=== PATIENT | male | born 1940 | race Caucasian/White ===

== ENCOUNTER 2020-02-06 14:42 | Inpatient (IN) | payer MEDICARE ==
[~2020-02-06] VITALS: Ht 188 cm; Wt 92.9 kg
[2020-02-06] VITALS (7 sets, daily range): BP systolic 148–170; BP diastolic 49–79
[2020-02-06] MEDS ORDERED: DEXTROSE 50% 25 GM / 50ML DISP.SYRIN. IV PRN (16:30)
[2020-02-06] MEDS ORDERED: ACET325T9 PO (16:57)
[2020-02-06] MEDS ORDERED: CALC-30 PO (16:59)
[2020-02-06] MEDS ORDERED: CETI5TAB2 PO (16:59)
[2020-02-06] MEDS ORDERED: ALBU2.5V14 NEB (16:59)
[2020-02-06] MEDS ORDERED: LACT1CAP29 PO (17:09)
[2020-02-06] MEDS ORDERED: CYAN100031 PO (17:09)
[2020-02-06] MEDS ORDERED: MUPI22OI2 TP (17:09)
[2020-02-06] MEDS ORDERED: CITA40TA5 PO (17:09)
[2020-02-06] MEDS ORDERED: GABA300C18 PO (17:09)
[2020-02-06] MEDS ORDERED: SENN8.6T88 PO (17:09)
[2020-02-06] MEDS ORDERED: METO-239 PO (17:09)
[2020-02-06] MEDS ORDERED: ROPI2TAB6 PO (17:09)
[2020-02-06] MEDS ORDERED: INSU100V6 SQ (17:09)
[2020-02-06] MEDS ORDERED: POTA-163 PO (17:09)
[2020-02-06] MEDS ORDERED: LIDO700A21 TP (17:09)
[2020-02-06] MEDS ORDERED: INSU100I13 SQ (17:09)
[2020-02-06] MEDS ORDERED: POLY2500 PO (17:09)
[2020-02-06] MEDS ORDERED: TAMS0.4C97 PO (17:09)
[2020-02-06] MEDS ORDERED: TORS20TA2 PO (17:09)
[2020-02-06] MEDS ORDERED: LOSA25TA PO (17:09)
[2020-02-06] MEDS ORDERED: CLOP75TA PO (17:09)
[2020-02-06] MEDS: INSULIN LISPRO 300 UNITS/3 ML VIAL. SQ SCH (17:09)
[2020-02-06] MEDS: INSULIN GLARGINE SYRINGE. SQ SCH (20:48)
[2020-02-06] MEDS ORDERED: ACETAMINOPHEN 325 MG TABLET. PO PRN (22:15)
[2020-02-07] VITALS (11 sets, daily range): BP systolic 110–169; BP diastolic 56–87
[2020-02-07] MEDS ORDERED: NON FORMULARY ITEM (Albuterol Sulfate (Albuterol Sulfate Conc Neb Soln) 1 VIAL) NEB SCH
[2020-02-07 05:15] LABS: BASO % 1 % (0-3); EOS # 0.2 x10^3/uL (0.0-0.7); EOS % 3 % (0-3); HEMOGLOBIN 11.5 g/dL (13.0-17.5); LYMPH # 1.4 x10^3/uL (1.0-4.8); LYMPH % 21 % (24-48); MEAN CORPUSCULAR HEMOGLOBIN 30 pg (25-35); MEAN CORPUSCULAR HGB CONC 34 g/dL (31-37); MEAN CORPUSCULAR VOLUME 90 fL (79-100); MONO # 0.6 x10^3/uL (0.0-1.1); MONO % 10 % (0-9); NEUT # 4.3 x10^3/uL (1.8-7.7); NEUT % 66 % (31-73); PLATELET COUNT 196 x10^3/uL (140-400); RED BLOOD COUNT 3.79 x10^6/uL (4.30-5.70); RED CELL DISTRIBUTION WIDTH 15.2 % (11.5-14.5); WHITE BLOOD COUNT 6.5 x10^3/uL (4.0-11.0)
[2020-02-07 05:43] LABS: ALBUMIN 2.5 g/dL (3.4-5.0); ALBUMIN/GLOBULIN RATIO 0.6 (1.0-1.7); CALCIUM 8.3 mg/dL (8.5-10.1); CREATININE 1.6 mg/dL (0.7-1.3); GFR 41.9; POTASSIUM 4.8 mmol/L (3.5-5.1); TOTAL BILIRUBIN 0.4 mg/dL (0.2-1.0); TOTAL PROTEIN 6.7 g/dL (6.4-8.2)
[2020-02-07] MEDS: ALBUTEROL SULFATE 2.5 MG/3 ML NEBU. NEB SCH ×4 (08:12→19:58)
--- NOTE | 2020-02-07 08:25 | PDOC ---
Infectious Disease Note Subjective: Subjective Patient seen and examined Vital Signs: Vital Signs Vital Signs Date Time Temp Pulse Resp B/P (MAP) Pulse Ox O2 Delivery O2 Flow Rate FiO2 02/07/20 08:12 97 Room Air 02/07/20 06:00 94 20 161/62 (95) 2.0 02/07/20 04:00 98.2 98.2 Medications: Inpatient Meds: Current Medications Medications (Trade) Dose Ordered Sig/Christina Start Time Stop Time Status Last Admin Dose Admin Acetaminophen (Tylenol) 650 mg PRN Q8HRS PRN 02/06/20 22:15 Albuterol Sulfate (Ventolin Neb Soln) 2.5 mg RTQID 02/07/20 08:00 02/07/20 08:12 2.5 MG Calcium/Vitamin D (Oscal D 500mg/ 200uts) 1 tab DAILYWBKFT 02/07/20 08:00 Cetirizine HCl (ZyrTEC) 5 mg DAILY 02/07/20 09:00 Citalopram Hydrobromide (CeleXA) 20 mg DAILY 02/07/20 09:00 Clopidogrel Bisulfate (Plavix) 75 mg DAILY 02/07/20 09:00 Cyanocobalamin (Vitamin B-12) 1,000 mcg DAILY 02/07/20 09:00 Dextrose (Dextrose 50%-Water Syringe) 12.5 gm PRN Q15MIN PRN 02/06/20 16:30 Gabapentin (Neurontin) 300 mg BID 02/07/20 09:00 Insulin Glargine (Lantus Syringe) 15 unit QHS 02/07/20 21:00 Cancel Insulin Human Lispro (HumaLOG) 12 units TIDWMEALS 02/07/20 08:00 Lactobacillus Rhamnosus (Culturelle) 1 cap DAILY 02/07/20 09:00 Lidocaine (Lidoderm) 1 patch DAILY 02/07/20 09:00 Meropenem 500 mg/ Sodium Chloride 50 ml @ 100 mls/hr Q12H 02/07/20 09:00 Metoprolol Succinate (Toprol Xl) 25 mg DAILY 02/07/20 09:00 Non-Formulary Medication (Albuterol Sulfate (Albuterol Sulfate Conc Neb Soln)) 1 vial Q6HRS 02/07/20 00:00 UNV Polyethylene Glycol (miraLAX PACKET) 17 gm DAILY 02/07/20 09:00 Potassium Chloride (Klor-Con) 20 meq DAILYWBKFT 02/07/20 08:00 Sennosides (Senna) 17.2 mg QHS 02/07/20 21:00 Tamsulosin HCl (Flomax) 0.4 mg DAILY 02/07/20 09:00 Torsemide (Demadex) 20 mg DAILY 02/07/20 09:00 Labs: Lab Laboratory Tests Test 02/06/20 16:21 02/06/20 20:46 02/07/20 04:25 Glucose (Fingerstick) 245 mg/dL (70-99) 173 mg/dL (70-99) White Blood Count 6.5 x10^3/uL (4.0-11.0) Red Blood Count 3.79 x10^6/uL (4.30-5.70) Hemoglobin 11.5 g/dL (13.0-17.5) Hematocrit 34.0 % (39.0-53.0) Mean Corpuscular Volume 90 fL (79-100) Mean Corpuscular Hemoglobin 30 pg (25-35) Mean Corpuscular Hemoglobin Concent 34 g/dL (31-37) Red Cell Distribution Width 15.2 % (11.5-14.5) Platelet Count 196 x10^3/uL (140-400) Neutrophils (%) (Auto) 66 % (31-73) Lymphocytes (%) (Auto) 21 % (24-48) Monocytes (%) (Auto) 10 % (0-9) Eosinophils (%) (Auto) 3 % (0-3) Basophils (%) (Auto) 1 % (0-3) Neutrophils # (Auto) 4.3 x10^3/uL (1.8-7.7) Lymphocytes # (Auto) 1.4 x10^3/uL (1.0-4.8) Monocytes # (Auto) 0.6 x10^3/uL (0.0-1.1) Eosinophils # (Auto) 0.2 x10^3/uL (0.0-0.7) Basophils # (Auto) 0.0 x10^3/uL (0.0-0.2) Sodium Level 136 mmol/L (136-145) Potassium Level 4.8 mmol/L (3.5-5.1) Chloride Level 101 mmol/L (98-107) Carbon Dioxide Level 30 mmol/L (21-32) Anion Gap 5 (6-14) Blood Urea Nitrogen 42 mg/dL (8-26) Creatinine 1.6 mg/dL (0.7-1.3) Estimated GFR (Cockcroft-Gault) 41.9 BUN/Creatinine Ratio 26 (6-20) Glucose Level 310 mg/dL (70-99) Calcium Level 8.3 mg/dL (8.5-10.1) Total Bilirubin 0.4 mg/dL (0.2-1.0) Aspartate Amino Transf (AST/SGOT) 20 U/L (15-37) Alanine Aminotransferase (ALT/SGPT) 17 U/L (16-63) Alkaline Phosphatase 137 U/L (46-116) Total Protein 6.7 g/dL (6.4-8.2) Albumin 2.5 g/dL (3.4-5.0) Albumin/Globulin Ratio 0.6 (1.0-1.7) Objective: Assessment: ID consult dictated Records from [facility] reviewed Plan: Plan of Care Continue Merrem Will wean off soon Thank you Discussed with nursing JOSE ANTONIO FERRARA MD Feb 07, 2020 08:25
--- NOTE | 2020-02-07 08:40 | CONS ---
DATE OF CONSULTATION: 02/07/2020 REFERRING PHYSICIAN: Dr. Farnsworth. REASON FOR CONSULTATION: Antibiotic management. HISTORY OF PRESENT ILLNESS: A 79-year-old male with history of CVA, presented on 02/04/2020 at [facility] ER after he was found on the floor at his home. The patient was found to have leukocytosis, JOSE, hyperkalemia, lactic acidosis. The patient is unable to give history. History obtained from the chart and medical staff. The patient's blood sugar was elevated at 1293. Potassium was 6.7. He had JOSE over CKD with hyponatremia. He received IV fluid bolus, was given Levaquin. Chest x-ray showed diffuse interstitial prominence, likely emphysematous changes associated with patchy opacities seen in the lung. It may be developing atelectasis or developing consolidation, no pleural effusion, no pneumothorax. He was started on IV insulin drip, IV fluids, and IV meropenem. The patient subsequently had AFib with RVR, so has been transferred to [facility] for further evaluation and treatment. Today, the patient feels better. He wants to go home. He denies any headache, sore throat, fever, chills, nausea, vomiting, diarrhea, abdominal pain. He has chronic Payton, which had some purulent drainage per staff. Urine cultures showed contamination. Payton was changed at [facility]. The patient denies being on any antibiotics prior to admission. He has Payton in place for a couple of months. Today, WBC is normal at 6.5, hemoglobin of 11.5, hematocrit of 34, platelets of 196. Sodium is 136, potassium 4.8, chloride 101, bicarbonate 30, creatinine is down to 1.6, glucose is down to 310. ID consult has been requested for antibiotic management. PAST MEDICAL HISTORY: CVA, diabetic peripheral neuropathy, hypertension, hyperlipidemia, COPD, restless leg syndrome, depression, DJD, chronic congestive heart failure, multiple rib fractures, recurrent falls, history of diabetic retinopathy, peripheral vascular disease, CKD, pseudophakia, diabetic macular edema, type 2 diabetes, history of lung abscess and pneumonia, chronic respiratory failure, on supplemental oxygen. SOCIAL HISTORY: Does not smoke, drink alcohol or use illicit drug use. , lives with son at home. ALLERGIES: PENICILLIN, the patient has tolerated amoxicillin well. CURRENT MEDICATIONS: Meropenem. Other medications reviewed in medication list. PHYSICAL EXAMINATION: VITAL SIGNS: Temperature 98.2, pulse 94, respiratory rate 20, blood pressure 161/62, oxygen saturation 94% on 2 liters of nasal cannula. GENERAL: Alert and oriented x 3 male lying in bed comfortably, in no acute distress, asking for breakfast. HEENT: Normocephalic, atraumatic, anicteric. NECK: Supple. LUNGS: Clear bilaterally. HEART: S1, S2, regular rhythm. No gallops or murmurs. ABDOMEN: Soft, nontender, nondistended, no rebound, no guarding. GENITOURINARY: Payton in place. EXTREMITIES: No edema, no cyanosis. NEUROLOGIC: Alert, awake. Left-sided weakness, chronic from cerebrovascular CVA. PSYCHIATRIC: Cooperative. LABORATORY DATA: WBC 6.5, was 21, hemoglobin 11.5, hematocrit 34, platelets 196. Chemistry as above. Glucose 310, calcium 8.3, alkaline phosphatase 137, total protein 6.7, albumin 2.5. Urine culture is negative at [facility]. IMAGING: None here. IMPRESSION: 1. Leukocytosis. 2. Lactic acidosis. 3. Diabetic ketoacidosis. 4. Hyperkalemia. 5. Acute kidney injury over chronic kidney disease. 6. Diabetes mellitus 2. 7. Atrial fibrillation with rapid ventricular response. 8. History of cerebrovascular accident. 9. Chronic indwelling Payton, Payton changed at outside hospitals. 10. HISTORY OF ALLERGIES TO PENICILLIN, reaction unknown. The patient states has tolerated amoxicillin. 11. Degenerative joint disease. 12. Chronic obstructive pulmonary disease. 13. Restless leg syndrome. 14. Depression. 15. Chronic congestive heart failure. 16. Diabetic peripheral neuropathy and retinopathy. RECOMMENDATIONS: 1. Continue meropenem. 2. We will wean off soon. 3. Follow up labs and cultures. 4. Continue supportive care. Thank you, Dr. Farnsworth, for consulting Infectious Disease to participate in this patient's care. If you have any questions, do not hesitate to contact me. CCT 35 minutes. Discussed with nursing staff. JOSE ANTONIO FERRARA MD DR: ADELA/mariel JOB#: [id number] / [id number]
[2020-02-07] MEDS: INSULIN LISPRO 300 UNITS/3 ML VIAL. SQ SCH ×6 (08:44→18:10)
[2020-02-07] MEDS: POLYETHYLENE GLYCOL 3350 17 GM PACKET. PO SCH (09:00)
[2020-02-07] MEDS ORDERED: METOPROLOL SUCC 24HR ER 25 MG TAB.ER.24H. PO SCH (09:00)
[2020-02-07] MEDS: POTASSIUM CHLORIDE 20 MEQ TABLET.ER. PO SCH (10:20)
[2020-02-07] MEDS: TAMSULOSIN 0.4 MG CAP.ER.24H. PO SCH (10:20)
[2020-02-07] MEDS: CYANOCOBALAMIN (VITAMIN B-12) 1,000 MCG TABLET. PO SCH (10:20)
[2020-02-07] MEDS: CITALOPRAM 20 MG TABLET. PO SCH (10:20)
[2020-02-07] MEDS: LACTOBACILLUS RHAMNOSUS GG 1 CAPSULE. PO SCH (10:20)
[2020-02-07] MEDS: CETIRIZINE HCL 10 MG TABLET. PO SCH (10:21)
[2020-02-07] MEDS: GABAPENTIN 300 MG CAPSULE. PO SCH ×2 (10:21→21:00)
[2020-02-07] MEDS: CALCIUM CARB/VIT D3 500/200 TABLET. PO SCH (10:21)
[2020-02-07] MEDS: TORSEMIDE 20 MG TABLET. PO SCH (10:21)
[2020-02-07] MEDS: CLOPIDOGREL BISULFATE 75 MG TABLET PO SCH (10:21)
[2020-02-07] MEDS: LIDOCAINE (700MG/PATCH) PATCH. TP SCH (10:23)
[2020-02-07] MEDS: MEROPENEM 500 MG in IV NORMAL SALINE 50ML 50 ML IV SCH ×2 (10:34→21:01)
--- NOTE | 2020-02-07 11:23 | PDOC ---
CARDIO Progress Notes Date and Time Date of Service 02/07/20 Time of Evaluation 1045 Subjective Subjective: No Chest Pain, No shortness of breath, No Palpitations Vitals Vitals Vital Signs Date Time Temp Pulse Resp B/P (MAP) Pulse Ox O2 Delivery O2 Flow Rate FiO2 02/07/20 10:22 107 169/81 02/07/20 08:12 97 Room Air 02/07/20 06:00 20 2.0 02/07/20 04:00 98.2 98.2 Weight Weight [ ] Input and Output Intake and Output Intake and Output 02/07/20 07:00 Intake Total 200 ml Output Total 2725 ml Balance -2525 ml Intake Oral 200 ml Output Urine Total 2725 ml Laboratory Labs Laboratory Tests Test 02/06/20 16:21 02/06/20 20:46 02/07/20 04:25 02/07/20 08:40 Glucose (Fingerstick) 245 mg/dL (70-99) 173 mg/dL (70-99) 383 mg/dL (70-99) White Blood Count 6.5 x10^3/uL (4.0-11.0) Red Blood Count 3.79 x10^6/uL (4.30-5.70) Hemoglobin 11.5 g/dL (13.0-17.5) Hematocrit 34.0 % (39.0-53.0) Mean Corpuscular Volume 90 fL (79-100) Mean Corpuscular Hemoglobin 30 pg (25-35) Mean Corpuscular Hemoglobin Concent 34 g/dL (31-37) Red Cell Distribution Width 15.2 % (11.5-14.5) Platelet Count 196 x10^3/uL (140-400) Neutrophils (%) (Auto) 66 % (31-73) Lymphocytes (%) (Auto) 21 % (24-48) Monocytes (%) (Auto) 10 % (0-9) Eosinophils (%) (Auto) 3 % (0-3) Basophils (%) (Auto) 1 % (0-3) Neutrophils # (Auto) 4.3 x10^3/uL (1.8-7.7) Lymphocytes # (Auto) 1.4 x10^3/uL (1.0-4.8) Monocytes # (Auto) 0.6 x10^3/uL (0.0-1.1) Eosinophils # (Auto) 0.2 x10^3/uL (0.0-0.7) Basophils # (Auto) 0.0 x10^3/uL (0.0-0.2) Sodium Level 136 mmol/L (136-145) Potassium Level 4.8 mmol/L (3.5-5.1) Chloride Level 101 mmol/L (98-107) Carbon Dioxide Level 30 mmol/L (21-32) Anion Gap 5 (6-14) Blood Urea Nitrogen 42 mg/dL (8-26) Creatinine 1.6 mg/dL (0.7-1.3) Estimated GFR (Cockcroft-Gault) 41.9 BUN/Creatinine Ratio 26 (6-20) Glucose Level 310 mg/dL (70-99) Calcium Level 8.3 mg/dL (8.5-10.1) Total Bilirubin 0.4 mg/dL (0.2-1.0) Aspartate Amino Transf (AST/SGOT) 20 U/L (15-37) Alanine Aminotransferase (ALT/SGPT) 17 U/L (16-63) Alkaline Phosphatase 137 U/L (46-116) Total Protein 6.7 g/dL (6.4-8.2) Albumin 2.5 g/dL (3.4-5.0) Albumin/Globulin Ratio 0.6 (1.0-1.7) Physical Exam HEENT: Neck Supple W Full Motion Chest: Symmetric LUNGS: Other (diminished ) Heart: S1S2, RRR Abdomen: Soft N/T Extremities: No Edema Neurology: alert, oriented, follow commands Assessment Assessment 1. Fall, encephalopathy. [facility] head negative for acute findings 2. Diabetes, II with significant hyperglycemia, DKA. POA 3. PAFIB with RVR; s/p IV Dig, metoprolol and Amiodarone bolus. Converted back to SR overnight. TSH WNL 4. Acute respiratory failure with acute on chronic diastolic CHF, AE COPD. Chronic home O2 5. Acute on chronic diastolic CHF; s/p IV Lasix. appears compensated 6 . Leukocytosis, lactic acidosis; improved 7. H/o CVA; on Plavix 8. Hypertension; low end 9. Hyperlipidemia; lipids on goal 10. JOSE on CKD, hpyerkalemia. improving 11. Neurogenic bladder with chronic Payton Recommendations Increase Metoprolol to 50mg daily. Was on 25mg at home Add ASA therapy Poor candidate for long-term OAC given h/o debility, recurrent falls Avoid nephrotoxins. Monitor renal function with diuresis Will arrange outpatient event monitor to guide therapy. Consider outpatient ischemic evaluation Follow up in our office with Dr. Adame as scheduled Echo at [facility] <Conclusion> The left ventricle is normal size. Left ventricle systolic function is mildly impaired. The Ejection Fraction is 40-45%. There is mild hypokinesis in the inferior wall. Septal motion consistent with conduction abnormality. Doppler and Color Flow revealed no significant aortic regurgitation. There is no significant aortic valvular stenosis. Doppler and Color Flow revealed trace mitral valve regurgitation. Doppler and Color Flow revealed trace tricuspid regurgitation. The PA pressure was estimated at 40 mmHg. DATE: 02/06/20 1228 Justicifation of Admission Dx: Justifications for Admission: Justification of Admission Dx: Yes CHF: Cardiac Arrhythmias AYO LAO APRN Feb 07, 2020 11:23
--- NOTE | 2020-02-07 11:27 | HP ---
ADMIT DATE: 02/06/2020 HISTORY OF PRESENT ILLNESS: The patient is a 79-year-old male patient who was admitted to [facility] on 02/04/2020. He was seen in the Emergency Room with altered mental status. He was found on the floor at his home. Family was checking on him and they found his blood sugar to be high on the monitor. They gave him 20 units of some kind of insulin 45 minutes prior to arrival to the Emergency Room and monitored again, read high. The patient complained of some penile pain, has a Payton catheter, has not been changed since December. He denied that he fell. He stated that he slid out of bed. He does not know why or how he slid out of the bed. He is alert to himself and answers question, but does not always answer appropriately. He denied any chest pain. He does not believe he has any fever. He is not able to tell us if he is taking any medication. He was extensively investigated in the Emergency Room and was found to have extremely marked leukocytosis with a white cell count [id number]. His blood sugar was high at 1293. His potassium was high at 6.7. Has chronic kidney disease versus acute on chronic kidney disease and marked dilutional hyponatremia. His lactic acid was 9.5. He did receive a total of 2500 mL of fluid. He was started on insulin drip. He was given also Levaquin. His chest x-ray showed the heart is not enlarged. There is some diffuse interstitial prominence and likely emphysematous changes associated with patchy opacities. These may represent atelectasis or developing consolidation, no pleural effusion or pneumothorax. He was admitted to ICU, continued on IV fluid, insulin drip and IV antibiotic. His white cell count came down nicely to 8000. His chemistry also has improved. In fact, his sodium has risen from 126 to 138 and his serum creatinine has improved from 3.7 to 2.1 yesterday and his lactic acid has normalized. Unfortunately, he went into atrial fibrillation with rapid ventricular response and despite treatment with multiple modalities including diltiazem drip, digoxin and amiodarone, he continued to be in rapid ventricular response and therefore a decision was made to transfer [facility] with the plan to cardiovert him if necessary. In fact, he was seen by the it security administrator and has had an echocardiogram, which showed that his left ventricular size is normal. His left ventricular systolic function is mildly impaired. His ejection fraction was 40-45%. There is mild hypokinesis in the inferior wall, septal motion consistent with conduction abnormalities. The echocardiogram showed no aortic regurgitation or aortic stenosis, mild mitral regurgitation, and trace tricuspid regurgitation. His pulmonary artery pressure was 40 mmHg. PAST MEDICAL HISTORY: Significant for cerebrovascular accident on 05/13/2016, type 2 diabetes, diabetic peripheral neuropathy, benign essential hypertension, hyperlipidemia, chronic obstructive pulmonary disease, restless leg syndrome and depression. He has also generalized osteoarthritis, chronic systolic congestive heart failure, has multiple rib fractures, recurrent falls, mild nonproliferative diabetic retinopathy, peripheral venous insufficiency, chronic kidney disease, pseudophakia, diabetic macular edema, and lung abscess with pneumonia. He is dependent on supplemental oxygen. He normally gets all his care at the [facility]. PAST SURGICAL HISTORY: Unremarkable. SOCIAL HISTORY: He apparently is , does not smoke, drink alcohol or use any recreational drugs. ALLERGIES: HE IS ALLERGIC TO PENICILLIN. MEDICATIONS: He was [facility] to [facility] to continue on Humalog insulin 12 units before meals and 15 units of Lantus insulin at bedtime as well as insulin sliding scale before meals. He was on cyanocobalamin 1000 mcg once a day, cetirizine 5 mg once a day, potassium chloride 20 mEq once a day, Lidoderm patch applied topically once a day, Plavix 75 mg once a day, Flomax 0.4 mg at bedtime, Requip 2 mg at bedtime, gabapentin 300 mg twice a day, calcium with vitamin D twice a day, Mucinex 600 mg twice a day, he was also on meropenem 500 mg IV q.12 hourly, metoprolol succinate 12.5 mg once a day, polyethylene glycol 17 grams twice a day, senna 2 tablets once a day, and Tylenol 650 mg every 6 hours. REVIEW OF SYSTEMS: As per history of present illness. When I saw him this morning in the ICU, he was resting flat, comfortably in bed, in no apparent distress. He denied any complaint. Apparently, he converted to sinus rhythm when he arrived here. PHYSICAL EXAMINATION: GENERAL: When I examined him, he looked somewhat pale, but no jaundice, cyanosis or thyromegaly. No jugular venous distention. No limb edema. VITAL SIGNS: His heart rate was 94, blood pressure was 161/62, temperature was 98.2, respiratory rate was 20, and oxygen saturation was 94% on 2 liters of oxygen. HEAD, EYES, EARS, NOSE AND THROAT: Normocephalic, atraumatic. NECK: Supple. HEART: Showed normal first and second heart sounds. No gallop or murmur. CHEST: Clear to auscultation. No crepitation or rhonchi. ABDOMEN: Distended, soft, and nontender. NEUROLOGICAL: He is awake, alert, but somewhat confused. All his cranial nerves are intact. EXTREMITIES: He moves extremities without difficulty. His intake over the last 24 hours was incompletely recorded. LABORATORY DATA: His lab work this morning showed his white cell count is down from 21,000 to 6500, hemoglobin 11.5, hematocrit 34, MCV was 90, and platelet count of 196,000. His chemistry showed his serum sodium was 136, potassium 4.8, chloride 101, bicarbonate 30, anion gap of 5, BUN 42, creatinine 1.6, estimated GFR was 42 mL per minute. His glucose was 110. Calcium was 8.3. Total bilirubin, AST, and ALT were normal. Alkaline phosphatase slightly elevated. Total protein 6.7. Albumin was 2.5. ASSESSMENT AND PLAN: In summary, this is a 79-year-old male patient who was transferred from [facility] with atrial fibrillation, rapid ventricular response, treated with digoxin, amiodarone and Cardizem drip; however, he converted to sinus rhythm at the moment he arrived here. He was admitted to [facility] with: 1. Diabetic ketoacidosis. 2. Lactic acidosis. 3. Acute on chronic kidney injury. 4. Hyperkalemia. 5. Sepsis, likely due to pneumonia versus urinary tract infection. 6. The patient has multiple other medical problems including: A. Chronic kidney disease. B. Hypertension. C. Hyperlipidemia. D. Type 2 diabetes mellitus. E. Chronic obstructive pulmonary disease. F. Restless leg syndrome. PLAN: The plan is obviously to continue monitoring his blood sugar and adjust insulin as needed. Continue with IV antibiotic in the form of meropenem. Continue with metoprolol to control his heart rate. Continue with furosemide for his chronic systolic congestive heart failure. The patient is stable and can be transferred to [address] [place] [address] [place] [address]. I would also consult the physical and occupational therapist. I did consult the it security administrator as well as Infectious Disease specialist. His kidney function has dramatically improved. His creatinine came down from 3.7 to 1.6. He also has severe protein-calorie malnutrition with serum albumin is only 2.5 g/dL. LINDA MARCOS MD DR: CIERA/mariel JOB#: [id number] / [id number]
[2020-02-07] MEDS ORDERED: METOPROLOL SUCC 24HR ER 25 MG TAB.ER.24H. PO ONE (11:45)
[2020-02-07] MEDS: ASPIRIN ENTERIC COATED 81 MG TABLET.DR. PO SCH (12:49)
--- NOTE | 2020-02-07 15:02 | NUR ---
SS following for discharge planning. SS reviewed pt chart and discussed with pt RN. Pt is from home with family and is currently on room air. Pt on IV Meropenem. Discharge plan is currently to home when ready. SS will continue to follow for discharge planning.
[2020-02-07] MEDS ORDERED: INSULIN GLARGINE SYRINGE. SQ SCH (21:00)
[2020-02-07] MEDS: rOPINIRole 1 MG TABLET. PO SCH (21:01)
[2020-02-07] MEDS: SENNOSIDES 8.6 MG TABLET PO SCH (21:01)
[2020-02-07] MEDS: INSULIN GLARGINE SYRINGE. SQ SCH (21:21)
[2020-02-08] VITALS (7 sets, daily range): BP systolic 97–156; BP diastolic 49–65
[2020-02-08 05:34] LABS: CALCIUM 8.1 mg/dL (8.5-10.1); CREATININE 1.3 mg/dL (0.7-1.3); GFR 53.3; POTASSIUM 4.1 mmol/L (3.5-5.1)
[2020-02-08] MEDS: ALBUTEROL SULFATE 2.5 MG/3 ML NEBU. NEB SCH ×4 (07:31→20:16)
[2020-02-08] MEDS: LIDOCAINE (700MG/PATCH) PATCH. TP SCH ×2 (09:00→09:52)
[2020-02-08] MEDS: POLYETHYLENE GLYCOL 3350 17 GM PACKET. PO SCH (09:00)
--- NOTE | 2020-02-08 09:06 | PDOC ---
Infectious Disease Note Subjective: Subjective pt feels much better no complaints no f/n/v/d/abdo pain/sob or cough Vital Signs: Vital Signs Vital Signs Date Time Temp Pulse Resp B/P (MAP) Pulse Ox O2 Delivery O2 Flow Rate FiO2 02/08/20 07:19 98.0 95 17 156/65 (95) 94 Room Air 98.0 02/07/20 20:00 2.0 Physical Exam: PHYSICAL EXAM GENERAL: Alert and oriented x 3 male lying in bed comfortably, in no acute distress, asking for breakfast. HEENT: Normocephalic, atraumatic, anicteric. NECK: Supple. LUNGS: Clear bilaterally. HEART: S1, S2, regular rhythm. No gallops or murmurs. ABDOMEN: Soft, nontender, nondistended, no rebound, no guarding. GENITOURINARY: Payton in place. EXTREMITIES: No edema, no cyanosis. NEUROLOGIC: Alert, awake. Left-sided weakness, chronic from cerebrovascular CVA. PSYCHIATRIC: Cooperative. Medications: Inpatient Meds: Current Medications Medications (Trade) Dose Ordered Sig/Christina Start Time Stop Time Status Last Admin Dose Admin Acetaminophen (Tylenol) 650 mg PRN Q8HRS PRN 02/06/20 22:15 Albuterol Sulfate (Ventolin Neb Soln) 2.5 mg RTQID 02/07/20 08:00 02/07/20 19:58 2.5 MG Aspirin (Ecotrin) 81 mg DAILYWBKFT 02/07/20 12:00 02/07/20 12:49 81 MG Calcium/Vitamin D (Oscal D 500mg/ 200uts) 1 tab DAILYWBKFT 02/07/20 08:00 02/07/20 10:21 1 TAB Cetirizine HCl (ZyrTEC) 5 mg DAILY 02/07/20 09:00 02/07/20 10:21 5 MG Citalopram Hydrobromide (CeleXA) 20 mg DAILY 02/07/20 09:00 02/07/20 10:20 20 MG Clopidogrel Bisulfate (Plavix) 75 mg DAILY 02/07/20 09:00 02/07/20 10:21 75 MG Cyanocobalamin (Vitamin B-12) 1,000 mcg DAILY 02/07/20 09:00 02/07/20 10:20 1,000 MCG Dextrose (Dextrose 50%-Water Syringe) 12.5 gm PRN Q15MIN PRN 02/06/20 16:30 Gabapentin (Neurontin) 300 mg BID 02/07/20 09:00 02/07/20 21:00 300 MG Insulin Glargine (Lantus Syringe) 15 unit QHS 02/07/20 21:00 Cancel Insulin Human Lispro (HumaLOG) 12 units TIDWMEALS 02/07/20 08:00 02/07/20 18:10 12 UNITS Lactobacillus Rhamnosus (Culturelle) 1 cap DAILY 02/07/20 09:00 02/07/20 10:20 1 CAP Lidocaine (Lidoderm) 1 patch DAILY 02/07/20 09:00 02/07/20 10:23 1 PATCH Meropenem 500 mg/ Sodium Chloride 50 ml @ 100 mls/hr Q12H 02/07/20 09:00 02/07/20 21:01 100 MLS/HR Metoprolol Succinate (Toprol Xl) 25 mg 1X ONCE 02/07/20 11:45 02/07/20 11:46 DC 02/07/20 12:48 25 MG Non-Formulary Medication (Albuterol Sulfate (Albuterol Sulfate Conc Neb Soln)) 1 vial Q6HRS 02/07/20 00:00 UNV Polyethylene Glycol (miraLAX PACKET) 17 gm DAILY 02/07/20 09:00 Potassium Chloride (Klor-Con) 20 meq DAILYWBKFT 02/07/20 08:00 02/07/20 10:20 20 MEQ Ropinirole HCl (Requip) 2 mg QHS 02/07/20 21:00 02/07/20 21:01 2 MG Sennosides (Senna) 17.2 mg QHS 02/07/20 21:00 02/07/20 21:01 17.2 MG Tamsulosin HCl (Flomax) 0.4 mg DAILY 02/07/20 09:00 02/07/20 10:20 0.4 MG Torsemide (Demadex) 20 mg DAILY 02/07/20 09:00 02/07/20 10:21 20 MG Labs: Lab Laboratory Tests Test 02/07/20 17:24 02/07/20 20:56 02/08/20 03:45 7/23/20 06:53 Glucose (Fingerstick) 142 mg/dL (70-99) 126 mg/dL (70-99) 211 mg/dL (70-99) Sodium Level 138 mmol/L (136-145) Potassium Level 4.1 mmol/L (3.5-5.1) Chloride Level 100 mmol/L (98-107) Carbon Dioxide Level 31 mmol/L (21-32) Anion Gap 7 (6-14) Blood Urea Nitrogen 32 mg/dL (8-26) Creatinine 1.3 mg/dL (0.7-1.3) Estimated GFR (Cockcroft-Gault) 53.3 Glucose Level 210 mg/dL (70-99) Calcium Level 8.1 mg/dL (8.5-10.1) Thyroid Stimulating Hormone (TSH) 1.862 uIU/mL (0.358-3.74) Objective: Assessment: 1. Leukocytosis.resolved 2. Lactic acidosis.resolved 3. Diabetic ketoacidosis.improved 4. Hyperkalemia.resolved 5. Acute kidney injury over chronic kidney disease. 6. Diabetes mellitus 2. 7. Atrial fibrillation with rapid ventricular response. 8. History of cerebrovascular accident. 9. Chronic indwelling Payton, Payton changed at outside hospitals. 10. HISTORY OF ALLERGIES TO PENICILLIN, reaction unknown. The patient states has tolerated amoxicillin. 11. Degenerative joint disease. 12. Chronic obstructive pulmonary disease. 13. Restless leg syndrome. 14. Depression. 15. Chronic congestive heart failure. 16. Diabetic peripheral neuropathy and retinopathy. Plan: Plan of Care ethan petersonin d/w JOSE ANTONIO Andrade MD Feb 08, 2020 09:06
--- NOTE | 2020-02-08 09:48 | PN ---
DATE: 02/08/2020 SUBJECTIVE: The patient is resting, slightly propped up in bed, in no apparent distress. He denied any complaint; however, nursing staff stated that he is extremely unsteady on his feet and would probably benefit from rehabilitation. I spoke to him about admission to a prison facility and in particular [facility] as he lives nearby in [place] and he is agreeable. We will test him for the COVID-19. Hopefully, he can go there tomorrow. OBJECTIVE: GENERAL: When I saw him in fact this morning, he looked well and was clearly in no apparent distress, slightly pale, but no jaundice, cyanosis or thyromegaly. No jugular venous distention. No limb edema. VITAL SIGNS: His heart rate was 95, blood pressure was 156/65, temperature 98, respiratory rate was 17 and oxygen saturation was 94%. HEAD, EYES, EARS, NOSE and THROAT: Showed normocephalic, atraumatic. NECK: Supple. HEART: Showed normal first and second heart sounds. No gallop, rub or murmur. CHEST: Clear to auscultation. No crepitation or rhonchi. ABDOMEN: Scaphoid, soft. Suprapubic catheter in place. NEUROLOGIC: He is definitely more awake, alert, responding appropriately. All cranial nerves are intact. He moves extremities without difficulty, although he is extremely unsteady and has tendency to fall. His intake was incompletely recorded, output was 2725. LABORATORY DATA: His lab work as of yesterday showed white cell count 6500, hemoglobin 11.5, hematocrit 34, MCV 90 and platelet count of 196,000. Serum sodium was 138, potassium 4.1, chloride 100, bicarbonate 31, anion gap of 7, BUN 32, creatinine 1.3. Estimated GFR was 53 mL per minute. Glucose was 110. Calcium was 8.1. TSH was normal. ASSESSMENT: 1. Diabetic ketoacidosis, resolved. 2. Lactic acidosis, resolved. 3. Acute on chronic kidney injury, also resolved. His creatinine is down to 1.3. 4. Hyperkalemia, resolved. 5. Sepsis, likely due to pneumonia versus urinary tract infection. 6. The patient has multiple other medical problems including: A. Chronic kidney disease. B. Hypertension. C. Hyperlipidemia. D. Type 2 diabetes mellitus. E. Chronic obstructive pulmonary disease. F. Restless leg syndrome. PLAN: To continue with all his current medications. Continue with physical and occupational therapy. We tested him for COVID, and hopefully, he can be discharged to [facility] tomorrow. LINDA MARCOS MD DR: CIERA/mariel JOB#: [id number] / [id number]
[2020-02-08] MEDS: AMOXICILLIN/K CLAV 500/125MG TABLET. PO SCH ×2 (09:52→21:24)
[2020-02-08] MEDS: LACTOBACILLUS RHAMNOSUS GG 1 CAPSULE. PO SCH (09:52)
[2020-02-08] MEDS: ASPIRIN ENTERIC COATED 81 MG TABLET.DR. PO SCH (09:52)
[2020-02-08] MEDS: CETIRIZINE HCL 10 MG TABLET. PO SCH (09:52)
[2020-02-08] MEDS: CITALOPRAM 20 MG TABLET. PO SCH (09:53)
[2020-02-08] MEDS: CYANOCOBALAMIN (VITAMIN B-12) 1,000 MCG TABLET. PO SCH (09:53)
[2020-02-08] MEDS: POTASSIUM CHLORIDE 20 MEQ TABLET.ER. PO SCH (09:53)
[2020-02-08] MEDS: CALCIUM CARB/VIT D3 500/200 TABLET. PO SCH (09:53)
[2020-02-08] MEDS: METOPROLOL SUCC 24HR ER 25 MG TAB.ER.24H. PO SCH (09:53)
[2020-02-08] MEDS: TORSEMIDE 20 MG TABLET. PO SCH (09:53)
[2020-02-08] MEDS: GABAPENTIN 300 MG CAPSULE. PO SCH ×2 (09:53→21:24)
[2020-02-08] MEDS: TAMSULOSIN 0.4 MG CAP.ER.24H. PO SCH (09:54)
[2020-02-08] MEDS: CLOPIDOGREL BISULFATE 75 MG TABLET PO SCH (09:54)
[2020-02-08] MEDS: INSULIN LISPRO 300 UNITS/3 ML VIAL. SQ SCH ×7 (09:59→17:30)
--- NOTE | 2020-02-08 11:18 | NUR ---
SS following up with discharge planning. SS reviewed pt chart and discussed with pt RN and Dr. Farnsworth. Pt requesting to go to [facility], ; fax [phone]. PT recommended prison unit. Pt is currently on room air. COVID19 pending. SS phoned and faxed referral to [facility]. SS will await acceptance decision and will proceed accordingly.
--- NOTE | 2020-02-08 11:28 | PDOC ---
CARDIO Progress Notes Date and Time Date of Service 02/08/2020 Time of Evaluation 1030 Subjective Subjective: No Chest Pain, No shortness of breath, No Palpitations Vitals Vitals Vital Signs Date Time Temp Pulse Resp B/P (MAP) Pulse Ox O2 Delivery O2 Flow Rate FiO2 02/08/20 10:25 98.0 97 17 140/62 (88) 93 Room Air 98.0 02/07/20 20:00 2.0 Weight Weight [ ] Input and Output Intake and Output Intake and Output 02/08/20 07:00 Intake Total 2230 ml Output Total 3225 ml Balance -995 ml Intake Oral 2130 ml Other 100 ml Output Urine Total 3225 ml Laboratory Labs Laboratory Tests Test 02/07/20 17:24 02/07/20 20:56 02/08/20 03:45 02/08/20 06:53 Glucose (Fingerstick) 142 mg/dL (70-99) 126 mg/dL (70-99) 211 mg/dL (70-99) Sodium Level 138 mmol/L (136-145) Potassium Level 4.1 mmol/L (3.5-5.1) Chloride Level 100 mmol/L (98-107) Carbon Dioxide Level 31 mmol/L (21-32) Anion Gap 7 (6-14) Blood Urea Nitrogen 32 mg/dL (8-26) Creatinine 1.3 mg/dL (0.7-1.3) Estimated GFR (Cockcroft-Gault) 53.3 Glucose Level 210 mg/dL (70-99) Calcium Level 8.1 mg/dL (8.5-10.1) Thyroid Stimulating Hormone (TSH) 1.862 uIU/mL (0.358-3.74) Test 02/08/20 11:10 Glucose (Fingerstick) 227 mg/dL (70-99) Physical Exam HEENT: Neck Supple W Full Motion Chest: Symmetric LUNGS: Other (diminished ) Heart: S1S2, RRR (SR) Abdomen: Soft N/T Extremities: No Edema, No Calf Tenderness Neurology: alert, oriented, follow commands Assessment Assessment 1. Fall, encephalopathy. [facility] head negative for acute findings 2. Diabetes, II with significant hyperglycemia, DKA. POA 3. PAFIB with RVR; s/p IV Dig, metoprolol and Amiodarone bolus. Remains in SR 4. Acute respiratory failure with acute on chronic diastolic CHF, AE COPD. Chronic home O2, RA at 92% 5. Acute on chronic diastolic CHF; s/p IV Lasix. compensated 6 . Leukocytosis, lactic acidosis; improved 7. H/o CVA; on Plavix 8. Hypertension; controlled 9. Hyperlipidemia; lipids on goal 10. JOSE on CKD, hyperkalemia: much better 11. Neurogenic bladder with chronic Payton Recommendations Continue toprol at 50 mg daily. ASA for stroke prevention, not an ideal candidate for long-term OAC given h/o debility, recurrent falls Avoid nephrotoxins. Monitor renal function with diuresis Consider for MCOT and outpatient ischemic evaluation Follow up in our office with Dr. Adame as scheduled Justicifation of Admission Dx: Justifications for Admission: Justification of Admission Dx: Yes CHF: Cardiac Arrhythmias IGOR HARRIS REAMER HAND Feb 08, 2020 11:28
[2020-02-08] MEDS: SENNOSIDES 8.6 MG TABLET PO SCH (21:00)
[2020-02-08] MEDS: rOPINIRole 1 MG TABLET. PO SCH (21:24)
[2020-02-08] MEDS: INSULIN GLARGINE SYRINGE. SQ SCH (21:30)
[2020-02-09] MEDS: ALBUTEROL SULFATE 2.5 MG/3 ML NEBU. NEB SCH ×3 (07:59→16:33)
[2020-02-09 08:00] VITALS: BP 144/68
[2020-02-09] MEDS: CALCIUM CARB/VIT D3 500/200 TABLET. PO SCH (08:00)
--- NOTE | 2020-02-09 08:00 | PDOC ---
Infectious Disease Note Subjective: Subjective pt feels much better no complaints Vital Signs: Vital Signs Vital Signs Date Time Temp Pulse Resp B/P (MAP) Pulse Ox O2 Delivery O2 Flow Rate FiO2 02/08/20 20:17 Room Air 02/08/20 20:14 98.3 100 17 97/62 (74) 97 98.3 02/08/20 20:00 2.0 Physical Exam: PHYSICAL EXAM GENERAL: Alert and oriented x 3 male lying in bed comfortably, in no acute distress, asking for breakfast. HEENT: Normocephalic, atraumatic, anicteric. NECK: Supple. LUNGS: Clear bilaterally. HEART: S1, S2, regular rhythm. No gallops or murmurs. ABDOMEN: Soft, nontender, nondistended, no rebound, no guarding. GENITOURINARY: Payton in place. EXTREMITIES: No edema, no cyanosis. NEUROLOGIC: Alert, awake. Left-sided weakness, chronic from cerebrovascular CVA. PSYCHIATRIC: Cooperative. Medications: Inpatient Meds: Current Medications Medications (Trade) Dose Ordered Sig/Christina Start Time Stop Time Status Last Admin Dose Admin Acetaminophen (Tylenol) 650 mg PRN Q8HRS PRN 02/06/20 22:15 02/08/20 21:35 650 MG Albuterol Sulfate (Ventolin Neb Soln) 2.5 mg RTQID 02/07/20 08:00 02/08/20 20:16 2.5 MG Amoxicillin/ Clavulanate Potassium (Augmentin 500/ 125mg) 1 tab BID 02/08/20 10:00 02/08/20 21:24 1 TAB Aspirin (Ecotrin) 81 mg DAILYWBKFT 02/07/20 12:00 02/08/20 09:52 81 MG Calcium/Vitamin D (Oscal D 500mg/ 200uts) 1 tab DAILYWBKFT 02/07/20 08:00 02/08/20 09:53 1 TAB Cetirizine HCl (ZyrTEC) 5 mg DAILY 02/07/20 09:00 02/08/20 09:52 5 MG Citalopram Hydrobromide (CeleXA) 20 mg DAILY 02/07/20 09:00 02/08/20 09:53 20 MG Clopidogrel Bisulfate (Plavix) 75 mg DAILY 02/07/20 09:00 02/08/20 09:54 75 MG Cyanocobalamin (Vitamin B-12) 1,000 mcg DAILY 02/07/20 09:00 02/08/20 09:53 1,000 MCG Dextrose (Dextrose 50%-Water Syringe) 12.5 gm PRN Q15MIN PRN 02/06/20 16:30 02/08/20 16:20 12.5 GM Gabapentin (Neurontin) 300 mg BID 02/07/20 09:00 02/08/20 21:24 300 MG Insulin Glargine (Lantus Syringe) 15 unit QHS 02/07/20 21:00 Cancel Insulin Human Lispro (HumaLOG) 10 units TIDWMEALS 02/08/20 17:30 Lactobacillus Rhamnosus (Culturelle) 1 cap DAILY 02/07/20 09:00 02/08/20 09:52 1 CAP Lidocaine (Lidoderm) 1 patch DAILY 02/07/20 09:00 02/07/20 10:23 1 PATCH Meropenem 500 mg/ Sodium Chloride 50 ml @ 100 mls/hr Q12H 02/07/20 09:00 02/08/20 09:33 DC 02/07/20 21:01 100 MLS/HR Metoprolol Succinate (Toprol Xl) 25 mg 1X ONCE 02/07/20 11:45 02/07/20 11:46 DC 02/07/20 12:48 25 MG Non-Formulary Medication (Albuterol Sulfate (Albuterol Sulfate Conc Neb Soln)) 1 vial Q6HRS 02/07/20 00:00 UNV Polyethylene Glycol (miraLAX PACKET) 17 gm DAILY 02/07/20 09:00 Potassium Chloride (Klor-Con) 20 meq DAILYWBKFT 02/07/20 08:00 02/08/20 09:53 20 MEQ Ropinirole HCl (Requip) 2 mg QHS 02/07/20 21:00 02/08/20 21:24 2 MG Sennosides (Senna) 17.2 mg QHS 02/07/20 21:00 02/07/20 21:01 17.2 MG Tamsulosin HCl (Flomax) 0.4 mg DAILY 02/07/20 09:00 02/08/20 09:54 0.4 MG Torsemide (Demadex) 20 mg DAILY 02/07/20 09:00 02/08/20 09:53 20 MG Labs: Lab Laboratory Tests Test 02/08/20 11:10 02/08/20 16:09 02/08/20 16:47 02/08/20 20:27 Glucose (Fingerstick) 227 mg/dL (70-99) 44 mg/dL (70-99) 86 mg/dL (70-99) 320 mg/dL (70-99) Objective: Assessment: 1. Leukocytosis.resolved 2. Lactic acidosis.resolved 3. Diabetic ketoacidosis.improved 4. Hyperkalemia.resolved 5. Acute kidney injury over chronic kidney disease. 6. Diabetes mellitus 2. 7. Atrial fibrillation with rapid ventricular response. 8. History of cerebrovascular accident. 9. Chronic indwelling Payton, Payton changed at outside hospitals. 10. HISTORY OF ALLERGIES TO PENICILLIN, reaction unknown. The patient states has tolerated amoxicillin. 11. Degenerative joint disease. 12. Chronic obstructive pulmonary disease. 13. Restless leg syndrome. 14. Depression. 15. Chronic congestive heart failure. 16. Diabetic peripheral neuropathy and retinopathy. Plan: Plan of Care augmentin Cultures negative so far Awaiting placement Continue supportive care JOSE ANTONIO FERRARA MD Feb 09, 2020 08:00
[2020-02-09] MEDS: CETIRIZINE HCL 10 MG TABLET. PO SCH (08:45)
[2020-02-09] MEDS: TAMSULOSIN 0.4 MG CAP.ER.24H. PO SCH (08:45)
[2020-02-09] MEDS: GABAPENTIN 300 MG CAPSULE. PO SCH (08:45)
[2020-02-09] MEDS: LACTOBACILLUS RHAMNOSUS GG 1 CAPSULE. PO SCH (08:45)
[2020-02-09] MEDS: AMOXICILLIN/K CLAV 500/125MG TABLET. PO SCH (08:45)
[2020-02-09] MEDS: CYANOCOBALAMIN (VITAMIN B-12) 1,000 MCG TABLET. PO SCH (08:45)
[2020-02-09] MEDS: LIDOCAINE (700MG/PATCH) PATCH. TP SCH (08:45)
[2020-02-09] MEDS: CITALOPRAM 20 MG TABLET. PO SCH (08:46)
[2020-02-09] MEDS: ASPIRIN ENTERIC COATED 81 MG TABLET.DR. PO SCH (08:46)
[2020-02-09] MEDS: POTASSIUM CHLORIDE 20 MEQ TABLET.ER. PO SCH (08:46)
[2020-02-09] MEDS: TORSEMIDE 20 MG TABLET. PO SCH (08:46)
[2020-02-09] MEDS: CLOPIDOGREL BISULFATE 75 MG TABLET PO SCH (08:46)
[2020-02-09] MEDS: POLYETHYLENE GLYCOL 3350 17 GM PACKET. PO SCH (08:47)
[2020-02-09] MEDS: METOPROLOL SUCC 24HR ER 25 MG TAB.ER.24H. PO SCH (08:47)
[2020-02-09] MEDS: INSULIN LISPRO 300 UNITS/3 ML VIAL. SQ SCH ×3 (08:52→18:12)
--- NOTE | 2020-02-09 10:00 | PDOC ---
PROGRESS NOTES Subjective Subjective no new problems Objective Objective Vital Signs Date Time Temp Pulse Resp B/P (MAP) Pulse Ox O2 Delivery O2 Flow Rate FiO2 02/09/20 08:47 89 144/89 02/09/20 08:01 90 Room Air 02/09/20 08:00 97.7 18 97.7 02/08/20 20:00 2.0 Intake and Output 02/09/20 07:00 Intake Total 300 ml Output Total 2600 ml Balance -2300 ml Intake Oral 300 ml Output Urine Total 2600 ml Physical Exam Abdomen: Normal bowel sounds, Soft Heart: Regular rate, Normal S1, Normal S2 Extremities: No clubbing General: Alert HEENT: Atraumatic Lungs: Clear to auscultation MUSCULOSKELETAL: No deformity Neck: Supple Neuro: Normal speech Psych/Mental Status: Mental status NL Skin: No breakdown Assessment Assessment ASSESSMENT: 1. Diabetic ketoacidosis, resolved. 2. Lactic acidosis, resolved. 3. Acute on chronic kidney injury, also resolved. His creatinine is down to 1.3. 4. Hyperkalemia, resolved. 5. Sepsis, likely due to pneumonia versus urinary tract infection. 6. The patient has multiple other medical problems including: A. Chronic kidney disease. B. Hypertension. C. Hyperlipidemia. D. Type 2 diabetes mellitus. E. Chronic obstructive pulmonary disease. F. Restless leg syndrome. PLAN: labs noted bs 400 rage today inc insulin dose covid -19 pending x ray lt knee d/c to SNU today. To continue with all his current medications. Continue with physical and occupational therapy. We tested him for COVID, and hopefully, he can be discharged to [facility] tomorrow. Comment Review of Relevant I have reviewed the following items marry (where applicable) has been applied. Labs Laboratory Tests Test 02/08/20 11:10 02/08/20 16:09 02/08/20 16:47 02/08/20 20:27 Glucose (Fingerstick) 227 mg/dL (70-99) 44 mg/dL (70-99) 86 mg/dL (70-99) 320 mg/dL (70-99) Test 02/09/20 08:26 Glucose (Fingerstick) 461 mg/dL (70-99) Medications Current Medications Amoxicillin/ Clavulanate Potassium (Augmentin 500/ 125mg) 1 tab BID PO Last administered on 02/09/20at 08:45; Start 02/08/20 at 10:00 Insulin Human Lispro (HumaLOG) 10 units TIDWMEALS SQ Last administered on 02/09/20at 08:52; Start 02/08/20 at 17:30 Vitals/I & O Vital Sign - Last 24 Hours 02/08/20 02/08/20 02/08/20 02/08/20 10:25 11:20 14:35 16:35 Temp 98.0 98.1 98.0 98.1 Pulse 97 89 Resp 17 17 B/P (MAP) 140/62 (88) 110/57 (74) Pulse Ox 93 93 O2 Delivery Room Air Room Air Room Air Room Air 02/08/20 02/08/20 02/08/20 02/08/20 20:00 20:00 20:14 20:17 Temp 98.1 98.3 98.1 98.3 Pulse 89 100 Resp 17 B/P (MAP) 110/57 (74) 97/62 (74) Pulse Ox 93 97 O2 Delivery Room Air Room Air Room Air Room Air O2 Flow Rate 2.0 2.0 02/09/20 02/09/20 02/09/20 02/09/20 08:00 08:00 08:01 08:47 Temp 97.7 97.7 Pulse 84 89 Resp 18 B/P (MAP) 144/68 (93) 144/89 Pulse Ox 90 90 O2 Delivery Room Air Room Air Room Air Intake and Output 02/08/20 02/08/20 02/09/20 15:00 23:00 07:00 Intake Total 300 ml Output Total 1700 ml 900 ml Balance -1400 ml -900 ml Justicifation of Admission Dx: Justifications for Admission: Justification of Admission Dx: Yes CHF: Cardiac Arrhythmias BRENDAN LORA MD Feb 09, 2020 10:00
[2020-02-09] MEDS ORDERED: ASPI-886 PO (10:06)
[2020-02-09] MEDS ORDERED: INSU100V35 SQ (10:06)
[2020-02-09] MEDS ORDERED: INSU100V8 SQ (10:06)
[2020-02-09] MEDS ORDERED: AMOX1TAB10 PO (10:06)
--- NOTE | 2020-02-09 10:08 | SNU/HH DC ---
DISCHARGE ORDERS DISCHARGE INFORMATION: DISCHARGE DATE: Feb 09, 2020 CONDITION ON DISCHARGE: Stable CODE STATUS: Code Status: Full ALF: SNF STAY <30 DAYS: Yes HOSPICE: HOSPICE: No HOSPICE EVAL & TREAT: No LTAC: ADMIT TO LTAC: No POST DISCHARGE ORDERS: ACTIVITY ORDERS: Resume previous activity DIET AFTER DISCHARGE: ADA CHECKS AFTER DISCHARGE: CHECKS AFTER DISCHARGE: Check blood sugar, ac/hs TREATMENT/EQUIPMENT ORDERS: Physical Therapy For: Evalulation/Treatment Occupational Therapy For: Evaluation/Treatment DISCHARGE MEDICATIONS: Home Meds Active Scripts Aspirin (ASPIRIN EC) 81 Mg Tablet.dr, 81 MG PO DAILYWBKFT for cad for 30 Days, #30 TAB.SR Prov:BRENDAN LORA MD 02/09/20 Insulin Lispro (Admelog) 100 Unit/1 Ml Vial, 15 UNITS SQ TIDWMEALS for dm for 30 Days, EACH Prov:BRENDAN LORA MD 02/09/20 Insulin Glargine,Hum.rec.anlog (LANTUS) 100 Unit/1 Ml Vial, 20 UNIT SQ QHS for dm for 30 Days, EACH Prov:BRENDAN LORA MD 02/09/20 Amoxicillin/Potassium Clav (AMOX TR-K CLV 500-125 MG TAB) 1 Each Tablet, 1 TAB PO BID for infection for 5 Days, #10 TAB Prov:BRENDAN LORA MD 02/09/20 Reported Medications Torsemide (TORSEMIDE) 20 Mg Tablet, 1 TAB PO DAILY for fluid, #90 TAB 1 Refill 02/06/20 Tamsulosin Hcl (FLOMAX) 0.4 Mg Cap.er.24h, 0.4 MG PO DAILY for prostate, TAB 02/06/20 Sennosides (SENNO) 8.6 Mg Tablet, 2 TAB PO QHS for constipation for 30 Days, #60 TAB 0 Refills 02/06/20 Ropinirole Hcl (ROPINIROLE HCL) 2 Mg Tab.er.24h, 2 MG PO HS for rls, TAB.SR 02/06/20 Potassium Chloride (Potassium Chloride) 20 Meq Tablet.er, 20 MEQ PO DAILY for pottassium, TAB.SR 02/06/20 Polyethylene Glycol 3350 (POLYETHYLENE GLYCOL 3350) 2,500 Gm Powder, 17 GM PO DAILY for constipation, #255 GM 0 Refills 02/06/20 Mupirocin (MUPIROCIN OINTMENT) 22 Gm Oint...g., 1 MARISSA TP TID for WOUND CARE, #1 TUBE 02/06/20 Metoprolol Succinate (METOPROLOL SUCCINATE ( XL )) 25 Mg Tab.er.24h, 1 TAB PO DAILY for bp, #30 TAB 5 Refills 02/06/20 Losartan Potassium (COZAAR ) 25 Mg Tablet, 12.5 MG PO DAILY for HYPERTENSION, TAB 02/06/20 Lidocaine (Lidocaine PATCH ) 1 Each Adh..patch, 1 EACH TP DAILY for apply to skin once a day, PATCH REMOVE AFTER 12 HOURS 02/06/20 Lactobacillus Combo No.10 (PROBIOTIC) 1 Each Capsule, 1 TAB PO DAILY for probiotc for 30 Days, #30 TAB 0 Refills 02/06/20 Gabapentin (GABAPENTIN) 300 Mg Capsule, 300 MG PO BID for NEUROGENIC PAIN, CAP 02/06/20 Cyanocobalamin (Vitamin B-12) (B-12) 1,000 Mcg Tablet.er, 1 TAB PO DAILY for vit for 30 Days, #30 TAB 0 Refills 02/06/20 Clopidogrel Bisulfate (CLOPIDOGREL) 75 Mg Tablet, 1 TAB PO DAILY for thinner, #90 TAB 3 Refills 02/06/20 Citalopram Hydrobromide (CITALOPRAM HBR) 40 Mg Tablet, 0.5 TAB PO DAILY for depression, #90 TAB 3 Refills 02/06/20 Cetirizine Hcl (CETIRIZINE HCL) 5 Mg Tablet, 5 MG PO DAILY for allergy, TAB 02/06/20 Calcium Carbonate/Vitamin D3 (CALCIUM 500 + VIT D 400 TABLET) 1 Each Tablet, 1 TAB PO DAILY for vit for 30 Days, #30 TAB 0 Refills 02/06/20 Albuterol Sulfate (ALBUTEROL SULFATE CONC NEB SOLN) 2.5 Mg/0.5 Ml Vial.neb, 1 VIAL NEB Q6HRS for breathing, #120 VIAL 5 Refills 02/06/20 Acetaminophen (TYLENOL) 325 Mg Tablet, 2 TAB PO PRN Q8HRS for pain, #30 TAB 02/06/20 Discontinued Reported Medications Insulin Glargine,Hum.rec.anlog (LANTUS SOLOSTAR) 100 Unit/1 Ml Insuln.pen, 15 UNIT SQ QHS for bs, #15 ML 3 Refills 02/06/20 Insulin Lispro (HUMALOG) 100 Unit/1 Ml Vial, 12 UNIT SQ TIDWMEALS for bs, VIAL 02/06/20 BRENDAN LORA MD Feb 09, 2020 10:08
--- NOTE | 2020-02-09 10:40 | RAD ---
EXAM: KNEE BILAT 2V. HISTORY: Bilateral knee pain, remote fall. COMPARISON: None. FINDINGS: No fractures are identified bilaterally. 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 Some extrusion of the left medial meniscal body is suspected. Small osteophytes are noted along the right medial compartment and the left lateral compartment. Joint spaces are preserved for patient age. There is no clear joint effusion. Atherosclerotic calcifications are noted. IMPRESSION: 1. No fracture. Minimal osteoarthritis for patient age as above. 2. Chondrocalcinosis of the menisci is usually a senescent finding. Correlate to exclude deposition diseases such as CPPD. The position of the left medial meniscal calcinosis is consistent with a medial meniscal tear. Electronically signed by: Santos Dominguez MD (02/09/2020 10:37 AM) [id number]
[2020-02-09 11:00] VITALS: BP 91/43
--- NOTE | 2020-02-09 12:13 | PDOC ---
CARDIO Progress Notes Date and Time Date of Service 02/09/2020 Time of Evaluation 1115 Subjective Subjective: No Chest Pain, No shortness of breath, No Palpitations Vitals Vitals Vital Signs Date Time Temp Pulse Resp B/P (MAP) Pulse Ox O2 Delivery O2 Flow Rate FiO2 02/09/20 11:00 97.6 79 18 91/43 (59) 90 Room Air 97.6 02/08/20 20:00 2.0 Weight Weight [ ] Input and Output Intake and Output Intake and Output 02/09/20 07:00 Intake Total 300 ml Output Total 2600 ml Balance -2300 ml Intake Oral 300 ml Output Urine Total 2600 ml Laboratory Labs Laboratory Tests Test 02/08/20 16:09 02/08/20 16:47 02/08/20 20:27 02/09/20 08:26 Glucose (Fingerstick) 44 mg/dL (70-99) 86 mg/dL (70-99) 320 mg/dL (70-99) 461 mg/dL (70-99) Physical Exam HEENT: Neck Supple W Full Motion Chest: Symmetric LUNGS: Other (diminished ) Heart: S1S2, RRR (SR) Abdomen: Soft N/T Extremities: No Edema, No Calf Tenderness Neurology: alert, oriented, follow commands Assessment Assessment 1. Falls, encephalopathy: mentation better 2. DM2 with hypoglycemia: recent DKA 3. PAFIB with RVR; s/p IV Dig, metoprolol and Amiodarone bolus. Remains in SR 4. Acute respiratory failure with acute on chronic diastolic CHF, AECOPD. Chronic home O2, JESE better 5. Acute on chronic diastolic/systolic CHF; s/p IV Lasix. compensated 6 . Leukocytosis, lactic acidosis; improved 7. H/o CVA; on Plavix 8. Hypertension; controlled 9. Hyperlipidemia; lipids on goal 10. JOSE on CKD, hyperkalemia: much better 11. Neurogenic bladder with chronic Payton 12. Cardiomyopathy: EF at 40-45% Recommendations Continue toprol at 50 mg daily. ASA for stroke prevention, not an ideal ca ndidate for long-term OAC given h/o debility, recurrent falls Continue current torsemide. Could restart home low dose losartan once BP is consistently adequate. Consider for MCOT and outpatient ischemic evaluation Follow up in our office with Dr. Adame as scheduled Justicifation of Admission Dx: Justifications for Admission: Justification of Admission Dx: Yes CHF: Cardiac Arrhythmias IGOR HARRIS MANAGER IMAGE Feb 09, 2020 12:13
--- NOTE | 2020-02-09 12:29 | NUR ---
SS following up with discharge planning. SS reviewed pt chart and discussed with pt RN. COVID19 test pending. SS currently awaiting on acceptance decision from [facility], ; fax [phone], for nursing home unit. SS will continue to follow for discharge planning.
--- NOTE | 2020-02-09 14:25 | NUR ---
SS following up with discharge planning. Pt COVID19 negative. SS contacted [facility] and was notified that no beds are available until next week. [facility] reported that they are not taking pt's at this time. SS met with pt and discussed. Pt agreeable to [facility], ; fax [phone]. SS phoned and faxed referral to [facility]. SS currently awaiting acceptance decision and will proceed accordingly.
[2020-02-09 15:00] VITALS: BP 90/48
--- NOTE | 2020-02-09 16:15 | NUR ---
SS following up with discharge planning. [facility], ; fax [phone], accepted pt. [facility]. Pt will discharge today and [facility] between 1900 and 193. [facility] providing transportation through [facility]. Pt and pt's RN notified.
--- NOTE | 2020-02-09 19:05 | NUR ---
Discharge Note: ELIO PEREZ [facility] Discharge instructions and discharge home medications reviewed with Other facility and a copy given. All questions have been answered and understanding verbalized. Belongings taken with patient upon discharge. Payton catheter in place. The following instructions and handouts were given: UTI Discontinued lines and drains: Peripheral IV intact. Patient discharged to [facility] with Transportation via Wheelchair
[2020-02-09] MEDS ORDERED: INSULIN GLARGINE SYRINGE. SQ SCH (21:00)
--- NOTE | 2020-03-08 12:20 | DS ---
DATE OF DISCHARGE: 02/09/2020 HOSPITAL COURSE: The patient is a 79-year-old male patient who was transferred from [facility], where he was seen in the emergency room with altered mental status, was found on the floor at his home. Family was checking on him and they found his blood sugar to be high in the monitor. He was given 20 units of some kind of insulin 45 minutes prior to arrival to the emergency room. The patient did complain of penile pain and had a Payton catheter, has been changed since December. He denied that he had fallen down. He stated that he slid out of his bed. He does not know why or how he slid out of the bed. He is alert to himself and answers question, but does not always answer appropriately. He was found to have marked leukocytosis with a white cell count 21,000. His blood sugar was extremely high at 1293. Potassium was extremely high at 6.7. Has chronic kidney disease versus acute on chronic kidney disease with marked dilutional hyponatremia. His lactic acid was 9.5. He did receive a total of 2500 mL of fluid. He was started on insulin drip and was given also Levaquin. His chest x-ray showed that the heart is not enlarged. There is some diffuse interstitial prominence and likely emphysematous changes associated with patchy opacities. These may represent atelectasis or developing consolidation. No pleural effusion or pneumothorax. He was admitted to ICU and continued IV fluid and insulin drip and IV antibiotic. His white cell count came down nicely to 8000. His chemistry has improved. In fact, his sodium has risen from 126 to 138. Serum creatinine came down from 3.7 to 2.1. Lactic acid has normalized. Unfortunately, he went into atrial fibrillation with rapid ventricular response despite treatment with multiple modalities including diltiazem drip, digoxin and amiodarone. He continued to be in a rapid ventricular response and therefore, a decision was made to transfer him to [facility] ICU with a plan to cardiovert him if necessary. In fact, he was seen by the Infectious Disease and was continued on IV meropenem and was seen also by the Cardiology team and his metoprolol was increased to 50 mg. He obviously was a poor candidate for oral anticoagulation given his debility and recurrent falls and apparently his heart rate was much better controlled. He completed his IV antibiotic and therefore, a decision was made to discharge him. He was discharged to [facility]. PHYSICAL EXAMINATION: GENERAL: On the day of discharge, the patient looked well and was clearly in no apparent respiratory distress, slightly pale, but no jaundice, cyanosis or thyromegaly. No jugular venous distention. No limb edema. VITAL SIGNS: His heart rate was 81, blood pressure was 90/48, temperature was 98, respiratory rate was 18 and oxygen saturation was 93% on 2 liters of oxygen. HEAD, EYES, EARS, NOSE AND THROAT: Normocephalic, atraumatic. NECK: Supple. HEART: Showed normal first and second heart sounds. No gallop, rub or murmur. CHEST: Clear to auscultation. No crepitation or rhonchi. ABDOMEN: Distended, soft, nontender. NEUROLOGIC: He was grossly intact. LABORATORY DATA: His lab work on the day of discharge showed a serum sodium 138, potassium 4.1, chloride 100, bicarbonate 31, anion gap of 7, BUN 32, creatinine 1.3, estimated GFR was 53 mL per minute. His glucose was 210, calcium was 8.1. TSH was 1.862. His white cell count was 6500, hemoglobin 11.5, hematocrit 34, MCV 90 and platelet count of 169,000. DISCHARGE MEDICATIONS: He was discharged on amoxicillin/clavulanic acid 500/125 twice a day for 5 more days, aspirin 81 mg once a day, Lantus insulin 20 units at bedtime and Humalog insulin 15 units 3 times a day with meals, Tylenol 650 mg every 8 hours, albuterol sulfate by nebulizer every 6 hours, calcium carbonate and vitamin D one tablet once a day, cetirizine 10 mg once a day, citalopram hydrobromide 20 mg once a day, Plavix 75 mg once a day, cyanocobalamin, vitamin B12 1000 mcg tablet once a day, gabapentin 300 mg twice a day, lactobacillus 1 probiotic once a day, Lidoderm patch on for 12 hours and off for 12 hours, losartan potassium 12.5 mg once a day, metoprolol succinate 25 mg once a day, polyethylene glycol 17 grams daily, potassium chloride 20 mEq once a day, allopurinol 2 mg at bedtime, sennosides 2 tablets once a day, tamsulosin for Flomax 0.4 mg daily and torsemide 20 mg daily. FINAL DISCHARGE DIAGNOSES: 1. Fall, encephalopathy. His mentation is much improved. 2. Type 2 diabetes mellitus, improved. 3. Paroxysmal atrial fibrillation with rapid ventricular response, now in sinus rhythm. 4. Acute respiratory failure with acute on chronic diastolic congestive heart failure. 5. Acute exacerbation of chronic obstructive pulmonary disease. He is on chronic home oxygen. 6. 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 7. Leukocytosis. 8. Lactic acidosis, improved. 9. History of cerebrovascular accident, on Plavix. 10. Hypertension. 11. Hyperlipidemia. 12. Acute on chronic kidney injury. 13. Neurogenic bladder with chronic Payton catheter. 14. Cardiomyopathy. LINDA MARCOS MD DR: CIERA/mariel JOB#: [id number] / [id number]
== END 2020-02-09 19:08 | DRG 871 ==
LOC: 1 WEST ICU 14:42 → 2 SOUTH 02-07 16:47
PROVIDERS: ADMIT Internal Medicine; ATTEND Internal Medicine
DX: A41.9 Sepsis, unspecified organism (principal); E11.10 Type 2 diabetes mellitus with ketoacidosis without coma; I50.43 Acute on chronic combined systolic (congestive) and diastolic (congestive) heart failure; J96.20 Acute and chronic respiratory failure, unspecified whether with hypoxia or hypercapnia; J18.9 Pneumonia, unspecified organism; G93.40 Encephalopathy, unspecified; I13.0 Hypertensive heart and chronic kidney disease with heart failure and stage 1 through stage 4 chronic kidney disease, or unspecified chronic kidney disease; E87.1 Hypo-osmolality and hyponatremia; N17.9 Acute kidney failure, unspecified; J44.1 Chronic obstructive pulmonary disease with (acute) exacerbation; I48.92 Unspecified atrial flutter; I42.9 Cardiomyopathy, unspecified; E11.22 Type 2 diabetes mellitus with diabetic chronic kidney disease; N18.9 Chronic kidney disease, unspecified; N31.9 Neuromuscular dysfunction of bladder, unspecified; Z96.1 Presence of intraocular lens; M15.9 Polyosteoarthritis, unspecified; I48.0 Paroxysmal atrial fibrillation; G25.81 Restless legs syndrome; F32.9 Major depressive disorder, single episode, unspecified; E78.5 Hyperlipidemia, unspecified; E11.649 Type 2 diabetes mellitus with hypoglycemia without coma; E11.42 Type 2 diabetes mellitus with diabetic polyneuropathy; E11.3219 Type 2 diabetes mellitus with mild nonproliferative diabetic retinopathy with macular edema, unspecified eye; E87.5 Hyperkalemia; E11.51 Type 2 diabetes mellitus with diabetic peripheral angiopathy without gangrene; R29.6 Repeated falls; Z20.828 Contact with and (suspected) exposure to other viral communicable diseases; R26.81 Unsteadiness on feet; I87.2 Venous insufficiency (chronic) (peripheral); Z99.81 Dependence on supplemental oxygen; Z88.0 Allergy status to penicillin; Z86.73 Personal history of transient ischemic attack (TIA), and cerebral infarction without residual deficits; Z87.01 Personal history of pneumonia (recurrent)
CPT/HCPCS: 36415; 73560; 80048; 80053; 82962; 84443; 85025; 94640; 94760; J1815; J2185; 97530-GP; G0378; J7613; U0003-CS